=== PATIENT | male | born 1975 | race Hispanic/Latino ===

== ENCOUNTER 2017-10-02 14:32 | Inpatient (IN) | payer SELFPAY ==
[2017-10-02] MEDS ORDERED: Lidocaine 1% PF 5 ML VIAL ONE (15:39)
[2017-10-02] MEDS ORDERED: Ketorolac Tromethamine 30 MG/ML VIAL ONE ×2 (15:39→16:22)
[2017-10-02] MEDS ORDERED: Dexamethasone 20 MG/5 ML VIAL ONE (15:39)
[2017-10-02] MEDS ORDERED: Ondansetron HCl/PF 4 MG/2 ML Vial ONE (15:39)
[2017-10-02] MEDS ORDERED: Propofol 200 MG/20 ML VIAL ONE (15:39)
--- NOTE | 2017-10-02 15:48 | RAD ---
4 VIEWS LEFT KNEE: Date: 10/02/17 HISTORY: Pain. COMPARISON: None. FINDINGS: No significant joint effusion. No malalignment. No fracture. Joint spaces are preserved. IMPRESSION: Unremarkable 4 views left knee. POS: [facility]
[2017-10-02] MEDS ORDERED: Adacel (T-DAP) 0.5 ML VIAL ONE (16:03)
[2017-10-02 16:34] LABS: #Eosinphils 0.2 thou/uL (0.0-0.7); #Lymphocytes 1.7 thou/uL (1.20-3.40); #Monocytes 0.7 thou/uL (0.11-0.59); #Neutrophils 2.4 thou/uL (1.40-6.50); %Basophils 0.7 % (0.0-1.0); %Eosinophils 4.8 % (0.0-10.0); %Lymphocytes 33.7 % (21.0-51.0); %Monocytes 13.2 % (0.0-10.0); Hematocrit 49.8 % (42.0-52.0); Mean Platelet Volume 6.9 fL (7.4-10.4); Red Blood Cell (RBC) Count 5.15 mill/uL (4.70-6.10); White Blood Cell (WBC) Count 4.9 thou/uL (4.8-10.8)
[2017-10-02 16:46] LABS: Lactic Acid - Sepsis 0.9 mmol/L (0.5-2.2)
[2017-10-02 16:51] LABS: ALT (SGPT) 45 U/L (8-55); AST (SGOT) 32 U/L (5-34); Alkaline Phosphatase 79 U/L (40-150); Anion Gap 13 mmol/L (10-20); BUN (Urea Nitrogen) 20 mg/dL (8.9-20.6); Bilirubin, Total 0.7 mg/dL (0.2-1.2); Calc. Creatinine Clearance 0 mL/min (70-130); Calcium 9.6 mg/dL (7.8-10.44); Carbon Dioxide 22 mmol/L (22-29); Chloride 105 mmol/L (98-107); Estimated GFR-MDRD Greater than 90; Protein, Total 8.4 g/dL (6.0-8.3)
[2017-10-02] MEDS ORDERED: Acetaminophen 325 MG TAB PO PRN (16:52)
[2017-10-02] MEDS ORDERED: Ondansetron ODT 4 MG TAB PO PRN (16:52)
[2017-10-02] MEDS ORDERED: Fentanyl 100 MCG/2 ML VIAL SLOW IVP PRN (16:52)
[2017-10-02] MEDS ORDERED: Ketorolac Tromethamine 30 MG/ML VIAL IVP PRN (16:52)
[2017-10-02] MEDS ORDERED: Ondansetron HCl/PF 4 MG/2 ML Vial IVP PRN ×2 (16:52→18:18)
[2017-10-02] MEDS ORDERED: Cepastat Lozenges 1 LOZ PO PRN (16:52)
[2017-10-02] MEDS ORDERED: traMADol HCl 50 MG TAB PO PRN (16:52)
[2017-10-02] MEDS ORDERED: Neomycin-Polymyxin 1 ML AMP ONE (16:53)
[2017-10-02] MEDS ORDERED: CEFAZOLIN/Water 2 GM/20 ML SYRINGE SLOW IVP SCH (17:00)
[2017-10-02] MEDS ORDERED: Morphine 4 MG/ML VIAL SLOW IVP SCH (17:15)
[2017-10-02] MEDS ORDERED: Piperacillin/Tazobactam 4.5 GM in Sodium Chloride 0.9% 100 ML IVPB SCH (17:15)
[2017-10-02] MEDS ORDERED: Fentanyl 100 MCG/2 ML VIAL ONE (17:54)
--- NOTE | 2017-10-02 18:12 | HP ---
DATE OF ADMISSION: 10/02/2017 CHIEF COMPLAINT: Left knee pain. HISTORY OF PRESENT ILLNESS: Michael is a 42-year-old male who injured himself with a nail gun jossie land. He shot himself with a nail in the anterior knee at the patellar tendon. The nail he reports was inserted approximately 1.5 inches. It was a 2.5-inch nail. He was able to remove this himself. He initially did well; however, last night, he began having knee pain. Today, he began having difficul ty walking and can no longer flex the knee. He developed swelling. His pain has worsened throughout the day. He presented to the Emergency Department. X-rays were obtained, which were negative. Padmaja la was consulted. PAST MEDICAL HISTORY: Negative. PAST SURGICAL HISTORY: Negative. SOCIAL HISTORY: The patient drinks alcohol and smokes cigarettes daily. He denies drug use. ALLERGIES: No known drug allergies. REVIEW OF SYSTEMS: Positive for left knee pain, otherwise negative. PHYSICAL EXAMINATION: VITAL SIGNS: Stable. Blood pressure is 124/75, pulse of 71, respiratory rate 18, temperature 97.8. GENERAL: The patient is alert and oriented, in no apparent distress. HEENT: Normocephalic, atraumatic. RESPIRATORY: Breathing comfortably. ABDOMEN: Soft, nontender, nondistended. MUSCULOSKELETAL: The patient's left knee has a small puncture wound anteriorly inferior to the [place] la. There is a small knee effusion. He has difficulty with flexion. He can flex and extend only an arc of 20 degrees. He has pain beyond this. There is slight warmth to the knee. IMPRESSION: Penetrating knee injury with nail gun, left knee. PLAN: At this point, I think the patient is developing a septic knee. He will need irrigation and d ebridement in the operating room including knee arthrotomy and exploration of his wound. We will colten e him to the operating room this evening once he is n.p.o. an adequate amount of time. He will need intravenous antibiotics as well. He is aware of the risks and benefits. I have discussed this plan with a gantry rigger. He will need to stay in the hospital at least 24 hours for intravenous antibiotic s.
[2017-10-02] MEDS ORDERED: Promethazine HCl 25 MG/ML VIAL SLOW IVP PRN (18:18)
[2017-10-02] MEDS ORDERED: Meperidine HCl/PF 25 MG/ML VIAL SLOW IVP PRN (18:18)
[2017-10-02] MEDS ORDERED: Promethazine HCl 25 MG/ML VIAL IM PRN (18:18)
[2017-10-02] MEDS ORDERED: Morphine Sulfate 2 MG/ML SYRINGE SLOW IVP PRN (18:18)
[2017-10-02] MEDS ORDERED: Bupivacaine/Epinephrine 0.25% 30 ML VIAL ONE (18:21)
[2017-10-02 20:20] VITALS: BMI 26.4
[2017-10-02] MEDS: D5 1/2 NS w/20 mEq KCL 1,000 ML IV SCH (20:22)
--- NOTE | 2017-10-02 22:16 | OP ---
OPERATION: Irrigation and debridement of left septic knee. PREOPERATIVE DIAGNOSIS: Left septic knee arthritis from puncture wound. POSTOPERATIVE DIAGNOSIS: Left septic knee arthritis from puncture wound. COMPLICATIONS: None. ESTIMATED BLOOD LOSS: Minimal. SURGEON: Bao Nicholas M.D. ANESTHESIA: General plus local. INDICATIONS: Michael is a 42-year-old male who sustained an injury to the left knee from a nail gun. He had a penetrating nail injury through the patellar tendon. He developed an infection related to t his. He was indicated for irrigation and debridement to eradicate infection and prevent complication s of septic arthritis of the knee. Risks have been reviewed in detail. He has elected to proceed wi th the operation. DESCRIPTION OF PROCEDURE: The patient's left lower extremity was prepped and draped in sterile fashi on. He was given intravenous antibiotics. A multidisciplinary timeout was performed. The leg was p repped and draped in sterile fashion. At this point, we began the procedure with a medial and anteri or incision over the knee. We incorporated the patient's puncture wound. We dissected down through the subcutaneous tissues and encountered some small areas of foreign body. These were removed with a rongeur. We debrided this area and thoroughly irrigated. Next, we worked more proximally and perfo rmed a medial parapatellar arthrotomy of the knee into the knee joint. We encountered some synovial and cloudy fluid which was cultured. We then thoroughly irrigated with 3 liters of lavage using i rrigant. We again sharply debrided the prepatellar tissues of any injured appearing tissue with a kn leopoldo and a rongeur. Next, we closed the arthrotomy with #1 Vicryl suture followed by 2-0 Vicryl sutur e and pro for the skin. A sterile dressing was applied. The patient was taken to the recovery r oom in good condition without complication.
[2017-10-03] MEDS: CEFAZOLIN/Water 2 GM/20 ML SYRINGE SLOW IVP SCH ×2 (01:32→10:03)
[2017-10-03] MEDS: D5 1/2 NS w/20 mEq KCL 1,000 ML IV SCH (03:38)
[2017-10-03 05:29] LABS: #Lymphocytes 0.7 thou/uL (1.20-3.40); #Monocytes 0.1 thou/uL (0.11-0.59); #Neutrophils 5.2 thou/uL (1.40-6.50); %Basophils 0.4 % (0.0-1.0); %Eosinophils 0.1 % (0.0-10.0); %Lymphocytes 11.5 % (21.0-51.0); %Monocytes 2.1 % (0.0-10.0); Mean Platelet Volume 7.2 fL (7.4-10.4); Red Blood Cell (RBC) Count 4.98 mill/uL (4.70-6.10); White Blood Cell (WBC) Count 6.1 thou/uL (4.8-10.8)
[2017-10-03] MEDS ORDERED: Enoxaparin Sodium 40 MG/0.4 ML SYRINGE SC SCH (09:00)
[2017-10-03] MEDS ORDERED: Acetaminophen/Codeine 30-300mg Tablet PO PRN ×2 (09:22)
[2017-10-03 09:47] VITALS: TEMP 98.4
[2017-10-03 10:02] VITALS: BP 108/58
[2017-10-04] MEDS ORDERED: Aspirin 325 MG TAB PO SCH (09:00)
== END 2017-10-03 10:33 | disposition home or self-care (01) | DRG 908 ==
LOC: ERS 14:32 → SDC/OP 17:05 → SURG B 20:02
PROVIDERS: ADMIT Orthopaedic Surgery; ATTEND Orthopaedic Surgery
PROC: 0JCP0ZZ Extirpation of Matter from Left Lower Leg Subcutaneous Tissue and Fascia, Open Approach (ICD-10-PCS; principal; 2017-10-02)
PROC: 0SBD0ZZ Excision of Left Knee Joint, Open Approach (ICD-10-PCS; 2017-10-02)
DX: S81.042A Puncture wound with foreign body, left knee, initial encounter (principal); M00.9 Pyogenic arthritis, unspecified; F17.210 Nicotine dependence, cigarettes, uncomplicated; W29.4XXA Contact with nail gun, initial encounter; M25.462 Effusion, left knee; Z23 Encounter for immunization
CPT/HCPCS: 36415; 80053; 83605; 85025; 87070; 87205; 90471; 90715; 96374; 99406; J1100; J1650; J1885; J2001; J2405; J2543; J2704; J3010; J7050

== ENCOUNTER 2017-10-21 10:16 | Emergency (ER) | payer SELFPAY ==
[2017-10-21] MEDS ORDERED: Bacitracin Zinc 1 Packet ONE (14:13)
== END 2017-10-21 14:15 | disposition home or self-care (01) ==
LOC: ERS 10:16
DX: Z48.817 Encounter for surgical aftercare following surgery on the skin and subcutaneous tissue (principal); Z48.02 Encounter for removal of sutures; F17.210 Nicotine dependence, cigarettes, uncomplicated